=== PATIENT | female | born 1955 | race Caucasian/White ===

== ENCOUNTER 2019-09-01 12:03 | Emergency (ER) | payer MEDICAID ==
--- NOTE | 2019-09-01 12:38 | Emergency Department Record ---
History of Present Illness - General Chief Complaint: Ankle/Foot Injury Stated Complaint: FALL RT FOOT INJURY Time Seen by Provider: 09/01/19 12:30 Source: Patient Mode of Arrival: Ambulatory Limitations: No limitations - History of Present Illness Initial Comments: 63 yo female presents after a one step fall off her ladder. She mis stepped injuring her lateral right foot. She denies any other injuries. No hip, knee, achilles pain or tenderness. She had a remote surgery of the right foot in the past. Skin is intact. No deformity. No blood thinners. MD Complaint: Foot injury Onset/Timin -: Hour(s) Injury: Foot: Right Type of Injury: Blunt Place: Home Severity: Moderate Severity scale (1-10): 8 Improves With: Immobilization, NSAID, Rest Worsens With: Weight bearing Context: Fall Associated Symptoms: Unable to bear weight Treatments Prior to Arrival: NSAIDS - Related Data Allergies Allergy/AdvReac Type Severity Reaction Status Date / Time carbocysteine [From Availnex] Allergy PT UNSURE Verified 09/01/19 12:24 OF REACTION cefaclor [From Ceclor] Allergy RASH Verified 09/01/19 12:24 SARINA Inhibitors AdvReac CONGESTION Verified 09/01/19 12:24 bacitracin AdvReac BLISTERS Verified 09/01/19 12:24 [From Neosporin ([id number])] neomycin AdvReac BLISTERS Verified 09/01/19 12:24 [From Neosporin ([id number])] polymyxin B AdvReac BLISTERS Verified 09/01/19 12:24 [From Neosporin ([id number])] Tetracyclines AdvReac VOMITING Verified 09/01/19 12:24 Travel Screening - Travel/Exposure Within Last 30 Days Have you traveled within the last 30 days?: No - Travel/Exposure Within Last Year Have you traveled outside the [place] in the last year?: No - Additonal Travel Details Have you been exposed to anyone with a communicable illness?: No - Travel Symptoms Symptom Screening: None Review of Systems Constitutional: Denies: Chills, Fever Eyes: Denies: Eye pain, Vision change ENT: Denies: Congestion, Throat pain Respiratory: Denies: Cough, Dyspnea Cardiovascular: Denies: Chest pain, Syncope Endocrine: Denies: Fatigue Gastrointestinal: Denies: Abdominal pain, Diarrhea, Nausea, Vomiting Genitourinary: Denies: Dysuria, Urgency Musculoskeletal: Reports: As per HPI, Arthralgia. Denies: Back pain, Neck pain Skin: Denies: Bruising, Change in color, Rash Neurological: Denies: Headache, Numbness, Tingling, Weakness Psychiatric: Denies: Anxiety Hematological/Lymphatic: Denies: Easy bleeding, Easy bruising Past Medical History - SOCIAL HISTORY Smoking Status: Never smoker - RESPIRATORY Hx Respiratory Disorders: No - CARDIOVASCULAR Hx Cardio Disorders: Yes Hx Hypotension: Yes Comment:: viral myocarditis - NEURO Hx Neuro Disorders: No - GI Hx GI Disorders: Yes Hx Reflux: Yes Hx Ulcer: Yes - Hx Genitourinary Disorders: No - ENDOCRINE Hx Endocrine Disorders: Yes Hx Diabetes: Yes - MUSCULOSKELETAL Hx Musculoskeletal Disorders: Yes Comment:: multiple ortho surgeries - PSYCH Hx Psych Problems: No - HEMATOLOGY/ONCOLOGY Hx Hematology/Oncology Disorders: No Family Medical History Any Significant Family History?: Yes Hx Diabetes: Grandparents Hx HTN: Grandparents Physical Exam - General General Appearance: Alert, Oriented x3, Cooperative, No acute distress Limitations: No limitations - Head Head exam: Atraumatic, Normal inspection Head exam detail: negative: Abrasion, Contusion, Hematoma - Eye Eye exam: Normal appearance. negative: Conjunctival injection - ENT ENT exam: Normal exam Ear exam: Normal external inspection Nasal Exam: Normal inspection Mouth exam: Normal external inspection - Neck Neck exam: Normal inspection - Respiratory Respiratory exam: Normal lung sounds bilaterally. negative: Respiratory distress - Cardiovascular Cardiovascular Exam: Regular rate, Normal rhythm, Normal heart sounds Peripheral Pulses: 2+: Dorsalis Pedis (R) - GI/Abdominal GI/Abdominal exam: Soft. negative: Tenderness - Rectal Rectal exam: Deferred - exam: Deferred - Extremities Extremities exam: Normal inspection, Full ROM, Normal capillary refill, Tenderness. negative: Calf tenderness, Joint swelling, Pedal edema Image of Feet: 1 - normal inspection, skin is intact, tender lateral foot, no swelling, achilles is nontender, no malleloar tenderness bilaterally - Back Back exam: Reports: Full ROM. Denies: CVA tenderness (R), CVA tenderness (L), Tenderness - Neurological Neurological exam: Alert, Oriented X3 - Psychiatric Psychiatric exam: Normal affect, Normal mood - Skin Skin exam: Dry, Intact, Normal color, Warm Course Vital Signs 09/01/19 12:15 Temperature 98.2 F Pulse Rate 66 Respiratory 18 Rate Blood Pressure 133/77 Pulse Ox 97 - Reevaluation(s) Reevaluation #1: 09/01/19 13:26 XR was reviewed Proximal acute 5th MT fracture The patient has her own [employer] boot She was given an outpatient orthopedic referral to Dr Barragan Disposition Disposition: Discharge Clinical Impression: Fracture of 5th metatarsal Qualifiers: Encounter type: initial encounter Fracture type: closed Fracture alignment: displaced Laterality: right Qualified Code(s): S92.351A - Displaced fracture of fifth metatarsal bone, right foot, initial encounter for closed fracture Disposition: Home, Self-Care Condition: (1) Good Instructions: Foot Fracture in Adults (ED) Additional Instructions: Use the boot and crutches for the foot fracture You have been referred to Dr Barragan of orthopedics Avoid weight bearing if possible Referrals: Iraj Barragan [DOCTOR OF OSTEOPATH] - [facility] Specialty Clin[facility] [Provider Group] Forms: Patient Portal Access Time of Disposition: 13:30 Quality - Quality Measures Quality Measures: N/A - Blood Pressure Screening Does Patient Have Any of the Following: No Blood Pressure Classification: Pre-Hypertensive BP Reading Systolic Measurement: 133 Diastolic Measurement: 77 Screening for High Blood Pressure: < Pre-Hypertensive BP, F/U Documented > [G8950] Pre-Hypertensive Follow-up Interventions: Referral to alternative/primary care provider.
--- NOTE | 2019-09-02 19:59 | RADIOLOGY REPORT ---
EXAM: FOOT, RIGHT 3 VIEWS HISTORY: RIGHT FOOT PAIN, INJURY TO THE FOURTH AND FIFTH METATARSAL REGION. TECHNIQUE: Three views. COMPARISON: None. FINDINGS: There is an acute transversely-oriented fracture in the proximal right fifth metatarsal. Mild displacement of the fracture fragment. There is a plantar calcaneal spur. Bones and joints otherwise unremarkable. IMPRESSION: 1. ACUTE MILDLY DISPLACED FRACTURE PROXIMAL RIGHT FIFTH METATARSAL. 2. CALCANEAL SPUR. JOB NUMBER: [id number] [facility]
== END 2019-09-01 13:52 | disposition home or self-care (01) ==
LOC: ER 12:03
DX: S92.351A Displaced fracture of fifth metatarsal bone, right foot, initial encounter for closed fracture (principal); W11.XXXA Fall on and from ladder, initial encounter; Y92.009 Unspecified place in unspecified non-institutional (private) residence as the place of occurrence of the external cause; I10 Essential (primary) hypertension
CPT/HCPCS: 99283

== ENCOUNTER 2019-09-16 19:24 | Emergency (ER) | payer MEDICAID ==
--- NOTE | 2019-09-16 19:44 | Emergency Department Record ---
History of Present Illness - General Chief Complaint: Knee injury Stated Complaint: LT KNEE INJURY Time Seen by Provider: 09/16/19 19:27 Source: Patient Mode of Arrival: Wheelchair Limitations: No limitations - History of Present Illness Initial Comments: 63 yo female presents to ED for evaluation of of pain to the left knee following a twist injury that occurred two days ago, pain worsened today. Patient reports that she was at home, turned left on a planted foot resulting in pain to the medial left knee. Patient reports pain with weight bearing, reports recent foot fracture 2 weeks ago as well. MD Complaint: Knee injury Onset/Timin -: Hour(s) Injury: Knee: Left Type of Injury: Other Place: Home Severity: Moderate Severity scale (1-10): 10 Improves With: Nothing Worsens With: Movement, Weight bearing Context: Fall Associated Symptoms: Snap/pop sensation, Swelling, Able to partially bear weight Treatments Prior to Arrival: NSAIDS - Related Data Previous Rx's Medication Instructions Recorded Hydrocodone/Acetaminophen [Gifford 1 each PO Q6H PRN #15 tablet 09/16/19 7.5-325 Tablet] Allergies Allergy/AdvReac Type Severity Reaction Status Date / Time carbocysteine [From Availnex] Allergy PT UNSURE Verified 09/01/19 12:24 OF REACTION cefaclor [From Ceclor] Allergy RASH Verified 09/01/19 12:24 SARINA Inhibitors AdvReac CONGESTION Verified 09/01/19 12:24 bacitracin AdvReac BLISTERS Verified 09/01/19 12:24 [From Neosporin ([id number])] neomycin AdvReac BLISTERS Verified 09/01/19 12:24 [From Neosporin ([id number])] polymyxin B AdvReac BLISTERS Verified 09/01/19 12:24 [From Neosporin ([id number])] Tetracyclines AdvReac VOMITING Verified 09/01/19 12:24 Travel Screening - Travel/Exposure Within Last 30 Days Have you traveled within the last 30 days?: No - Travel/Exposure Within Last Year Have you traveled outside the [place] in the last year?: No - Additonal Travel Details Have you been exposed to anyone with a communicable illness?: No - Travel Symptoms Symptom Screening: None Review of Systems Constitutional: Denies: Chills, Fever, Malaise, Night sweats Eyes: Denies: Eye discharge, Eye pain ENT: Denies: Congestion, Ear pain, Epistaxis Respiratory: Denies: Cough, Dyspnea Cardiovascular: Denies: Chest pain, Dyspnea on exertion Endocrine: Denies: Fatigue, Heat or cold intolerance Gastrointestinal: Denies: Abdominal pain, Nausea Genitourinary: Denies: Discharge, Incontinence, Retention Musculoskeletal: Reports: Arthralgia, Joint swelling. Denies: Back pain, Gout Skin: Denies: Bruising, Change in color Neurological: Denies: Abnormal gait, Confusion, Headache, Seizure Psychiatric: Denies: Anxiety Hematological/Lymphatic: Denies: Anemia, Blood Clots Past Medical History - SOCIAL HISTORY Smoking Status: Never smoker - RESPIRATORY Hx Respiratory Disorders: No - CARDIOVASCULAR Hx Cardio Disorders: Yes Hx Hypotension: Yes Comment:: viral myocarditis - NEURO Hx Neuro Disorders: No - GI Hx GI Disorders: Yes Hx Reflux: Yes Hx Ulcer: Yes - Hx Genitourinary Disorders: No - ENDOCRINE Hx Endocrine Disorders: Yes Hx Diabetes: Yes - MUSCULOSKELETAL Hx Musculoskeletal Disorders: Yes Comment:: multiple ortho surgeries - PSYCH Hx Psych Problems: No - HEMATOLOGY/ONCOLOGY Hx Hematology/Oncology Disorders: No Family Medical History Any Significant Family History?: Yes Hx Diabetes: Grandparents Hx HTN: Grandparents Physical Exam - General General Appearance: Alert, Oriented x3, Cooperative, Moderate distress Limitations: No limitations - Head Head exam: Atraumatic, Normocephalic, Normal inspection Head exam detail: negative: Abrasion, Contusion, Cuenca's sign, General tenderness, Hematoma, Laceration - Eye Eye exam: Normal appearance. negative: Conjunctival injection, Periorbital swelling, Periorbital tenderness, Scleral icterus - ENT Ear exam: negative: Auricular hematoma, Auricular trauma Nasal Exam: negative: Active bleeding, Discharge, Dried blood, Foreign body Mouth exam: negative: Drooling, Laceration, Muffled voice, Tongue elevation - Neck Neck exam: Normal inspection. negative: Meningismus, Tenderness - Respiratory Respiratory exam: Normal lung sounds bilaterally. negative: Rales, Respiratory distress, Rhonchi, Stridor - Cardiovascular Cardiovascular Exam: Regular rate, Normal rhythm, Normal heart sounds - GI/Abdominal GI/Abdominal exam: Soft. negative: Rebound, Rigid, Tenderness - Rectal Rectal exam: Deferred - exam: Deferred - Extremities Extremities exam: Tenderness, Other (TTP over the left medial knee, infrapatellar region. No significant effusion is present on examination.). negative: Calf tenderness, Pedal edema - Back Back exam: Denies: CVA tenderness (R), CVA tenderness (L) - Neurological Neurological exam: Alert, Oriented X3 - Psychiatric Psychiatric exam: Normal affect, Normal mood - Skin Skin exam: Normal color. negative: Abrasion Type of lesion: negative: abrasion Course Vital Signs 09/16/19 19:26 Temperature 99.1 F Pulse Rate 93 H Respiratory 20 Rate Blood Pressure 162/95 Pulse Ox 98 - Reevaluation(s) Reevaluation #1: 09/16/19 20:16 Left knee: No acute osseous process Patient was updated on her radiograph results, will provide analgesia and knee immobilizer for patient comfort. Will refer the patient to both Dr. Solis (shoulder surgery 15 years ago) and Dr. Barragan for further evaluation. Patient appears stable for discharge at this time. Disposition Disposition: Discharge Clinical Impression: Sprain of collateral ligament of knee Qualifiers: Encounter type: initial encounter Laterality: left Qualified Code(s): S83.402A - Sprain of unspecified collateral ligament of left knee, initial encounter Disposition: Home, Self-Care Condition: (2) Stable Instructions: Knee Sprain (ED) Additional Instructions: Return to ED if your symptoms worsen or if you have any concerns. Motrin 800 mg, Gifford as directed. Knee immobilizer and crutches as directed. Follow-up with Dr. Solis or Dr. Barraagn in 3-5 days as directed. Prescriptions: Hydrocodone/Acetaminophen [Gifford 7.5-325 Tablet] 1 each PO Q6H PRN #15 tablet PRN Reason: Pain - Mod To Severe (5-10) Referrals: TASHA SOLIS [PCM.PHYS] - Iraj Barragan [DOCTOR OF OSTEOPATH] - [facility] Specialty Clinics [Provider Group] Forms: Patient Portal Access Time of Disposition: 20:19 Quality - Quality Measures Quality Measures: N/A - Blood Pressure Screening Does Patient Have Any of the Following: Active Dx of HTN Blood Pressure Classification: Hypertensive Reading Systolic Measurement: 162 Diastolic Measurement: 95 Screening for High Blood Pressure: Patient Exclusion, Hx of HTN [G9744]
[2019-09-16] MEDS ORDERED: HYDROCODONE/APAP 7.5/325MG TABLET PO ONE (19:49)
--- NOTE | 2019-09-16 20:15 | RADIOLOGY REPORT ---
EXAMINATION: Left Knee Complete, Four or More Views EXAM DATE: 09/16/2019 7:52 PM TECHNIQUE: Frontal, lateral, and sunrise view INDICATION: kne strain COMPARISON: None ENCOUNTER: Initial FINDINGS: The left knee maintains normal alignment. There is no fracture or dislocation. There is no effusion. There is no soft tissue abnormality. IMPRESSION: Normal left knee radiographs. Dictated by: Axel Mina MD on 09/16/2019 8:12 PM. .
== END 2019-09-16 20:36 | disposition home or self-care (01) ==
LOC: ER 19:24
DX: S83.402A Sprain of unspecified collateral ligament of left knee, initial encounter (principal); X50.1XXA Overexertion from prolonged static or awkward postures, initial encounter; Y92.009 Unspecified place in unspecified non-institutional (private) residence as the place of occurrence of the external cause
CPT/HCPCS: 99283